=== PATIENT | male | born 1985 | race Asian ===

== ENCOUNTER 2023-09-12 08:17 | Emergency (ER) | payer OTHER ==
[~2023-09-12] VITALS: Ht 170.2 cm; Wt 77.0 kg
[2023-09-12 08:30] VITALS: TEMP 98.7
[2023-09-12 08:51] LABS: EOSINOPHILS % (AUTO) 2.4 % (1.0-6.0); HEMATOCRIT 45.8 % (41-53); HEMOGLOBIN 15.5 g/dL (13.5-17.5); LYMPHOCYTES # (AUTO) 4.9 K/uL (1.0-4.8); LYMPHOCYTES % (AUTO) 47.3 % (22.0-44.0); MEAN CORPUSCULAR HEMOGLOBIN 29.8 pg (26.0-34.0); MEAN CORPUSCULAR HGB CONC 33.8 G/dL (31.0-37.0); MEAN CORPUSCULAR VOLUME 88 fL (80-100); MONOCYTES # (AUTO) 0.6 K/uL (0.1-1.0); MONOCYTES % (AUTO) 5.5 % (2.0-9.0); NEUTROPHILS # (AUTO) 4.5 K/uL (1.8-7.7); NEUTROPHILS % (AUTO) 43.8 % (40.0-70.0); PLATELET COUNT (AUTO) 423 K/uL (150-450); RED BLOOD CELL COUNT(AUTO) 5.19 MIL/uL (4.50-5.90); RED CELL DISTRIBUTION WIDTH 13.1 % (11.5-14.5); WHITE BLOOD COUNT (AUTO) 10.3 K/uL (4.5-11.0)
[2023-09-12 09:08] LABS: ANION GAP 8 mmol/L (8-16); CALCIUM, TOTAL 9.4 mg/dL (8.8-10.5); CARBON DIOXIDE 30 mmol/L (22-29); CHLORIDE 99 mmol/L (98-107); CREATININE 1.31 mg/dL (0.60-1.30); GLOMERULAR FILTR. RATE CALC > 60 mL/min (>60); GLUCOSE,RANDOM 136 mg/dL (70-110); POTASSIUM 3.5 mmol/L (3.5-5.1); SODIUM SERUM 137 mmol/L (136-145); UREA NITROGEN, BLOOD 16 mg/dL (7-18)
[2023-09-12 09:14] LABS: ALANINE AMINOTRANSFERASE 48 U/L (12-78); ALBUMIN 4.1 g/dL (3.4-5.0); ALKALINE PHOSPHATASE 51 U/L (46-116); ASPARTATE AMINOTRANSFERASE 63 U/L (15-37); BILIRUBIN,TOTAL 0.6 mg/dL (0.1-1.0); LIPASE 54 U/L (16-77); TOTAL PROTEIN, SERUM 7.5 g/dL (6.4-8.2)
[2023-09-12 09:18] LABS: TROPONIN I-HIGH SENSITIVITY 26 ng/L (<76)
[2023-09-12] MEDS: ONDANSETRON HCL 4 MG/2 ML VIAL IVP ONE (09:21)
[2023-09-12] MEDS: IOHEXOL 9 MG/ML 500 ML BOTTLE PO ONE (09:21)
[2023-09-12] MEDS: HYDROmorphone HCL 2 MG/ML SYRINGE IVP ONE (09:21)
[2023-09-12] MEDS: PB/HYOSCY/ATR/SCOP/LIDO/MAALOX 55 ML BOTTLE PO ONE (09:26)
[2023-09-12] MEDS: SODIUM CHLORIDE 0.9% 1,000 ML IV ONE (09:26)
[2023-09-12] MEDS ORDERED: SODIUM CHLORIDE 0.9% 100 ML ONE (10:05)
[2023-09-12] MEDS ORDERED: IOHEXOL 350 MG/ML 100 ML VIAL ONE (10:05)
[2023-09-12 10:54] LABS: APPEARANCE,URINE CLEAR (CLEAR); BILIRUBIN,URINE NEGATIVE (NEGATIVE); COLOR,URINE YELLOW (YELLOW); GLUCOSE, URINE (UA) NEGATIVE (NEGATIVE); KETONES,URINE NEGATIVE (NEGATIVE); LEUKOCYTE ESTERASE ,URINE NEGATIVE (NEGATIVE); NITRATE,URINE NEGATIVE (NEGATIVE); OCCULT BLOOD,URINE NEGATIVE (NEGATIVE); PH,URINE 6.5 (5.0-8.0); PROTEIN,URINE TRACE mg/dL (NEGATIVE); SPECIFIC GRAVITIY, URINE 1.017 (1.003-1.030)
[2023-09-12] MEDS ORDERED: MAG30ORA11 PO (15:01)
[2023-09-12] MEDS ORDERED: OMEP20 PO (15:01)
[2023-09-12] MEDS ORDERED: ONDA-104 PO (15:01)
[2023-09-12] MEDS ORDERED: ACET-66 PO (15:01)
[2023-09-12 15:15] VITALS: BP 126/74; PULSE 61; RESP 16
== END 2023-09-12 15:27 | disposition home or self-care (01) ==
LOC: EMS 08:17
DX: K29.00 Acute gastritis without bleeding (principal); B96.89 Other specified bacterial agents as the cause of diseases classified elsewhere; K80.20 Calculus of gallbladder without cholecystitis without obstruction; R10.13 Epigastric pain
CPT/HCPCS: 99285; 74177; 96374; 76705; 71045; 96361; 96375; 80053; 81003; 83690; 84484; 85025; 36415; 93005; J1170; J2405; Q9967; J7030; J7050